=== PATIENT | male | born 1965 | race Caucasian/White ===

== ENCOUNTER 2016-05-04 12:57 | Outpatient (RCR) | payer OTHER | END 2016-07-09 | LOC: WSOH | DX: M77.11 Lateral epicondylitis, right elbow (principal); X50.0XXA Overexertion from strenuous movement or load, initial encounter; Y99.0 Civilian activity done for income or pay ==

== ENCOUNTER 2021-03-27 13:56 | Outpatient (RCR) | payer OTHER | END 2021-04-28 | disposition home or self-care (01) | LOC: WSOH | DX: M19.031 Primary osteoarthritis, right wrist (principal); Z98.890 Other specified postprocedural states; Y99.0 Civilian activity done for income or pay ==

== ENCOUNTER → 2022-09-07 | Outpatient (CLI) | payer BC | LOC: COL.VAS 11:56 | DX: I67.9 Cerebrovascular disease, unspecified (principal) ==